=== PATIENT | male | born 1940 | race Caucasian/White ===

== ENCOUNTER 2017-05-25 06:42 | Day surgery (SDC) | payer MEDICARE, OTHER ==
[2017-05-20 14:34] VITALS: BMI 30.4
[~2017-05-25 06:42] MED LIST: ALPRAZolam 0.25 MG TAB PO PRN; ALPRAZolam 0.5 MG TAB PO PRN; ASPIRIN 325 MG TAB PO STA; ATORVASTATIN 80 MG TAB PO STA; NITROGLYCERIN SL TABS 0.4 MG TAB SUBLINGUAL PRN; SODIUM CHLORIDE 0.9% 1,000 ML in EMPTY BAG 1 BAG IV ONE
[2017-05-25 07:08] VITALS: TEMP 97.6
[2017-05-25] MEDS ORDERED: LIDOCAINE 2% INJ 20 MG/ML (20 ML MDV) ONE (07:12)
[2017-05-25] MEDS ORDERED: fentaNYL (PF) 50 MCG/ML 2 ML AMP ONE (07:34)
[2017-05-25] MEDS ORDERED: fentaNYL (PF) 50 MCG/ML 2 ML AMP IVP ONE (07:36)
[2017-05-25] MEDS ORDERED: LIDOCAINE 2% INJ 20 MG/ML SQ ONE (07:37)
[2017-05-25] MEDS ORDERED: IOHEXOL 350 MG/ML 100 ML BOTTLE INJ ONE (07:49)
--- NOTE | 2017-05-25 08:09 | P.PCN ---
Date of Procedure: 05/25/17 Preoperative Diagnosis: Chest pain and positive stress test Postoperative Diagnosis: No significant coronary artery disease Procedure(s) Performed: Left heart catheterization with left ventriculography Implants: Indications for Procedure: Operative Findings: Description of Procedure: HISTORY: This is a 76-year-old gentleman with history of ischemic heart disease with previous stent placement of the circumflex in the setting of acute myocardial infarction. Patient had a borderline lesion in the RCA. Recent stress test showed ischemia in the inferolateral segments. Patient is advised to have cardiac catheterization for definitive diagnosis and further intervention as needed. CONSENT:I have discussed the risks, benefits and alternative therapies for the above-mentioned procedure and for both sedation/analgesia as well as necessary blood product administration, if indicated, as they pertain to this patient. The patient has indicated understanding and acceptance of the risks and procedures discussed. CONSCIOUS SEDATION: Patient was given 50 g of fentanyl. The duration of sedation was 26 minutes. PROCEDURE: Patient was brought to the lab in a fasting state. Patient was given some IV sedation. The right groin is infiltrated with lidocaine and right femoral artery was entered using Seldinger technique. A 6-Vietnamese catheter was left in place and selective coronary arteriography and left ventriculography was performed. Patient tolerated the procedure well. Femoral angiogram was performed and Angio-Seal was applied for hemostasis. No immediate complications were noted and patient was transferred to [facility] in a stable condition HEMODYNAMICS: The aortic pressure is 130/70. Left ankle end-diastolic pressure is 12. There was no gradient across the aortic valve SELECTIVE CORONARY ARTERIOGRAPHY: LEFT MAIN: This is of normal length and patent THE LEFT ANTERIOR DESCENDING CORONARY ARTERY: This is a good caliber vessel giving rise to small diagonal and septal branches. This is free of any significant focal occlusive disease. THE LEFT CIRCUMFLEX AND IS CORONARY ARTERY: This is a good caliber vessel with patent stent in the midportion. It gives rise to 2 PLV branches. It is devoid of any major OM branches and its possible that one of the OM branch might have been totally occluded. THE RIGHT CORONARY ARTERY: This is a good caliber vessel giving rise to good-sized PDA and PLV branches. The vessel shows calcification throat its length without any focal disease. The borderline lesion seen at the origin of the PDA Previously, and doesn't appear to be significant. LEFT VENTRICULOGRAPHY:. This revealed normal-sized cardiac silhouette with good systolic function without any segmental wall motion defects. FINAL IMPRESSION: Stable coronary artery disease with patent stent in the mid circumflex. Enteric coronary system shows calcification. There doesn't seem to be any critical focal lesion. It is possible one of the OM branches might have been totally occluded. PLAN: continuation maximum medical therapy and risk factor modification. PROGNOSIS: good
[2017-05-25] MEDS ORDERED: SODIUM CHLORIDE 0.9% 1,000 ML IV SCH (08:15)
[2017-05-25] MEDS ORDERED: RX INFO: IV CONTRAST WAS GIVEN 1 EACH MISC MISCELLANE PRN (08:15)
[2017-05-25] MEDS ORDERED: HYDROcodone/APAP 10-325MG 1 EACH TAB ONE (08:29)
[2017-05-25 09:55] VITALS: BP 117/76; PULSE 68; RESP 16
== END 2017-05-25 12:50 | disposition home or self-care (01) ==
LOC: CATHCVL 06:42
PROVIDERS: ATTEND Internal Medicine Cardiovascular Disease
DX: I25.118 Atherosclerotic heart disease of native coronary artery with other forms of angina pectoris (principal); Z95.5 Presence of coronary angioplasty implant and graft; R94.39 Abnormal result of other cardiovascular function study; I25.2 Old myocardial infarction; I10 Essential (primary) hypertension; E78.5 Hyperlipidemia, unspecified; E78.00 Pure hypercholesterolemia, unspecified; I25.5 Ischemic cardiomyopathy; Z79.02 Long term (current) use of antithrombotics/antiplatelets; Z79.82 Long term (current) use of aspirin; Z79.899 Other long term (current) drug therapy; F17.210 Nicotine dependence, cigarettes, uncomplicated
CPT/HCPCS: 99152; 93458; C1760; C1894; C1769; J2001; Q9967; J3010

== ENCOUNTER → 2017-11-06 | Outpatient (CLI) | payer MEDICARE ==
[2017-11-06 11:12] LABS: Blood Urea Nitrogen 17 mg/dL (9-20); Non-African American GFR(MDRD) >60 (>60 ml/min/1.73 sqM)
--- NOTE | 2017-11-06 22:54 | CT ---
EXAMINATION TYPE: CT abdomen w con DATE OF EXAM: 11/06/2017 COMPARISON: NONE HISTORY: Cyst on kidneys CT DLP: 823.6 mGycm CONTRAST: CT scan of the abdomen and pelvis is performed without Oral Contrast and with IV Contrast, patient in jected with 100 mL of Omnipaque 300. FINDINGS: LUNG BASES-: No visible nodule. No infiltrate. LIVER/GB: The gallbladder is distended with maximal dimension of about 10.5 cm. Simple hepatic cyst left hepatic lobe lateral segment measuring 2.2 cm. Biliary tree is of normal caliber. PANCREAS: No inflammation. No distinct mass. SPLEEN: No splenic enlargement. No lesion seen. ADRENALS: No nodule. No thickening. KIDNEYS/BLADDER: No hydronephrosis. No nephrolithiasis. Bilateral renal cysts noted. Right renal c yst measures of 5.7 cm and left renal cyst measures 4.3 cm. Urinary bladder grossly unremarkable. BOWEL: Visualized bowel loops appear to be of normal caliber. No inflammatory process seen. LYMPH NODES: No greater than 1cm abdominal or pelvic lymph nodes are appreciated. AORTA: No significant abnormality. OSSEOUS STRUCTURES: Degenerative changes lumbar spine. OTHER: No significant additional abnormality is seen. IMPRESSION: 1. Bilateral simple renal cysts without solid mass identified. 2. Gallbladder hydrops. 3. Simple cyst of the liver.
--- NOTE | 2017-11-06 22:54 | CTL ---
EXAMINATION TYPE: CT Low Dose Lung DATE OF EXAM ORDERED: 11/06/2017 HISTORY: . Lung cancer screening CT DLP: 109.[address] CTD: 3.10 mGy Automated exposure control for dose reduction was used. SCREENING VISIT: COMPARISON: None TECHNIQUE: Low dose computed tomography scan was performed through the chest at 1 mm thick sections a nd reconstructed images in the coronal plane at [address] DIAGNOSTIC QUALITY: Satisfactory FINDINGS: Calcified granuloma in the left upper lobe measuring 4 mm. There is a 3 mm nodule right upper lobe an terior segment image 46 which is noncalcified. 2 mm noncalcified nodule anterior segment left upper l obe image 107. Changes of COPD noted and there is biapical pleural thickening. Subsegmental changes involving both l heidi bases. Most likely basis of atelectasis. There is central and basilar bronchiectasis. No pleural thickening or calcifications noted. Atherosclerotic change of the aorta. No evidence of an eurysm. Assessment for adenopathy limited d by noncontrast technique but no obvious pathologic adenopathy. Dense coronary artery calcification and cardiomegaly noted. There is atherosclerotic change of the ao rta. There is a 7 mm left adrenal nodule which is nonspecific. There is an age-indeterminate compression f racture of a mid thoracic segment is slightly sclerotic changes to the vertebral body. IMPRESSION: Lung rad category 2 (benign findings) 1. Calcified nodule left upper lobe compatible with granuloma and benign finding. Recommend 12 month follow-up exam. 2. Age-indeterminate compression fracture mid thoracic spine with slightly irregular margins. Recomme nd follow-up thoracic spine MRI. 3. Left lower lobe atelectasis or infiltrate. FOLLOW UP CT CHEST RECOMMENDATION: [address] LUNG RAD: Category 2
== END | disposition home or self-care (01) ==
LOC: RADCTMAIN 09:37
PROVIDERS: ATTEND Internal Medicine
DX: Z12.2 Encounter for screening for malignant neoplasm of respiratory organs (principal); R91.8 Other nonspecific abnormal finding of lung field; R91.1 Solitary pulmonary nodule; N28.1 Cyst of kidney, acquired; K82.1 Hydrops of gallbladder; K76.89 Other specified diseases of liver; Z87.891 Personal history of nicotine dependence
CPT/HCPCS: 82565; 84520; 74160; 36415; G0297; Q9967

== ENCOUNTER 2019-08-01 16:45 | Emergency (ER) | payer MEDICARE ==
[2019-08-01] MEDS ORDERED: SODIUM CHLORIDE 0.9% 1,000 ML IV STA ×2 (17:32)
[2019-08-01] MEDS ORDERED: SODIUM CHLORIDE 0.9% 500 ML 500 ML IV STA (17:32)
[2019-08-01] MEDS ORDERED: MORPHINE SULFATE 4 MG/ML SYRINGE IV STA (17:32)
[2019-08-01] MEDS ORDERED: KETOROLAC 30 MG/ML 1 ML VIAL IVP STA (17:33)
--- NOTE | 2019-08-01 18:05 | ED ---
Dizziness HPI - General Chief Complaint: Dizziness Stated Complaint: dizziness, back pain, low BP Time Seen by Provider: 08/01/19 17:07 Source: patient, RN notes reviewed, old records reviewed Mode of arrival: ambulatory Limitations: no limitations - History of Present Illness Initial Comments: This is a 78-year-old male the ER for evaluation presented for evaluation of back pain is worsened normal. Patient denies specific chest pain with the pain is shoulder blades and into his back. He denies any history of heart disease, patient does have high blood pressure high cholesterol. Patient states he does have some chronic pain secondary to he was at work, chronic back pain chronic neck pain he does take [place] at home for pain no current help with that at home. Patient denies any fevers today. No nausea vomiting. He does admit to decreased appetite as of lately maybe some dehydration, family noted blood pressure was low today as well MD Complaint: dizziness, lightheadedness -: hour(s) Timing: gradual onset Description: lightheadedness History of Same: No History of Trauma: No Severity: moderate Improves With: remaining still, rest Worsens With: movement, exertion Associated Symptoms: loss of appetite, weakness - Related Data Home Medications Medication Instructions Recorded Confirmed ALPRAZolam [Xanax] 0.5 mg PO BID PRN 02/07/16 08/01/19 HYDROcodone/APAP 10-325MG [[place] 1 tab PO Q46H PRN 02/07/16 08/01/19 10-325] Sertraline [Zoloft] 100 mg PO DAILY 02/07/16 08/01/19 Tamsulosin HCl [Flomax] 0.4 mg PO DAILY 05/20/17 08/01/19 Finasteride [Proscar] 5 mg PO DAILY 08/01/19 08/01/19 Losartan Potassium [Cozaar] 25 mg PO DAILY 08/01/19 08/01/19 traZODone HCL [Desyrel] 100 mg PO HS 08/01/19 08/01/19 Previous Rx's Medication Instructions Recorded Aspirin 325 mg PO DAILY tab 02/10/16 Atorvastatin [Lipitor] 80 mg PO HS #30 tab 02/10/16 Carvedilol [Coreg] 3.125 mg PO BID-W/MEALS #60 tab 02/10/16 Clopidogrel [Plavix] 75 mg PO DAILY #30 tab 02/10/16 Allergies Allergy/AdvReac Type Severity Reaction Status Date / Time No Known Allergies Allergy Verified 08/01/19 17:50 Review of Systems ROS Statement: Those systems with pertinent positive or pertinent negative responses have been documented in the HPI. ROS Other: All systems not noted in ROS Statement are negative. Past Medical History Past Medical History: Coronary Artery Disease (CAD), GERD/Reflux, Hyperlipidemia, Hypertension, Osteoarthritis (OA) Additional Past Medical History / Comment(s): Hiatal hernia, cataracts(removed,has lens implants), freddy glaucoma History of Any Multi-Drug Resistant Organisms: None Reported Past Surgical History: Adenoidectomy, Appendectomy, Heart Catheterization With Stent, Hernia Repair, Tonsillectomy Additional Past Surgical History / Comment(s): cataracts,umbilical hernia repair, Colonoscopy Past Anesthesia/Blood Transfusion Reactions: No Reported Reaction Date of Last Stent Placement:: 02/03/2016 Past Psychological History: No Psychological Hx Reported Smoking Status: Current every day smoker - Past Family History Father Family Medical History: Cancer, Diabetes Mellitus, Eye Disorder, Prostate Disorder Additional Family Medical History / Comment(s): glaucoma, enlarged prostate and later in life prostate cancer. lived to be 99. Mother Family Medical History: Dementia, Osteoarthritis (OA) Sister(s) Family Medical History: Cancer Son(s) Family Medical History: No Reported History General Exam - General Exam Comments Initial Comments: He does have some tenderness to the lateral muscles of the back Limitations: no limitations General appearance: alert, in no apparent distress Head exam: Present: atraumatic, normocephalic, normal inspection Eye exam: Present: normal appearance, EOMI. Absent: scleral icterus, conjunctival injection, periorbital swelling ENT exam: Present: normal exam, mucous membranes dry Neck exam: Present: normal inspection. Absent: tenderness, meningismus, lymphadenopathy Respiratory exam: Present: normal lung sounds bilaterally. Absent: respiratory distress, wheezes, rales, rhonchi, stridor Cardiovascular Exam: Present: regular rate, normal rhythm, normal heart sounds. Absent: systolic murmur, diastolic murmur, rubs, gallop, clicks GI/Abdominal exam: Present: soft, normal bowel sounds. Absent: distended, tenderness, guarding, rebound, rigid Extremities exam: Present: normal inspection, full ROM, normal capillary refill. Absent: tenderness, pedal edema, joint swelling, calf tenderness Back exam: Present: normal inspection Neurological exam: Present: alert, oriented X3, CN II-XII intact Psychiatric exam: Present: normal affect, normal mood Skin exam: Present: warm, dry, intact, normal color. Absent: rash Course Vital Signs 08/01/19 16:52 Temperature 98.0 F Pulse Rate 66 Respiratory 18 Rate Blood Pressure 107/68 O2 Sat by Pulse 98 Oximetry - Reevaluation(s) Reevaluation #1: 08/01/19 18:03 Medical records reviewed Reevaluation #2: 08/01/19 20:04 patient is in no acute distress EKG Findings - EKG Comments: EKG Findings:: EKG shows sinus rhythm rate of 64, OK 182, QRS 80, QTC 422 Medical Decision Making - Medical Decision Making 28 male the ER for evaluation of dizziness and back pain. Symptoms significantly resolved currently improving with hydration. Pain control and patient can be discharged home - Lab Data Result diagrams: 08/01/19 18:40 08/01/19 18:40 Lab Results 08/01/19 08/01/19 08/01/19 Range/Units 18:40 18:40 18:40 WBC 9.0 (3.8-10.6) k/uL RBC 4.48 (4.30-5.90) m/uL Hgb 14.4 (13.0-17.5) gm/dL Hct 41.7 (39.0-53.0) % MCV 93.2 (80.0-100.0) fL MCH 32.1 (25.0-35.0) pg MCHC 34.4 (31.0-37.0) g/dL RDW 13.3 (11.5-15.5) % Plt Count 171 (150-450) k/uL Neutrophils % 64 % Lymphocytes % 25 % Monocytes % 7 % Eosinophils % 2 % Basophils % 1 % Neutrophils # 5.7 (1.3-7.7) k/uL Lymphocytes # 2.2 (1.0-4.8) k/uL Monocytes # 0.6 (0-1.0) k/uL Eosinophils # 0.2 (0-0.7) k/uL Basophils # 0.1 (0-0.2) k/uL PT (9.0-12.0) sec INR (<1.2) APTT (22.0-30.0) sec Sodium 140 (137-145) mmol/L Potassium 4.2 (3.5-5.1) mmol/L Chloride 107 (98-107) mmol/L Carbon Dioxide 25 (22-30) mmol/L Anion Gap 8 mmol/L BUN 26 H (9-20) mg/dL Creatinine 1.08 (0.66-1.25) mg/dL Est GFR (CKD-EPI)AfAm 77 (>60 ml/min/1.73 sqM) Est GFR (CKD-EPI)NonAf 66 (>60 ml/min/1.73 sqM) Glucose 97 (74-99) mg/dL Calcium 9.1 (8.4-10.2) mg/dL Magnesium 2.1 (1.6-2.3) mg/dL Total Bilirubin 1.1 (0.2-1.3) mg/dL AST 22 (17-59) U/L ALT 15 L (21-72) U/L Alkaline Phosphatase 79 (38-126) U/L Troponin I (0.000-0.034) ng/mL NT-Pro-B Natriuret Pep 108 pg/mL Total Protein 6.1 L (6.3-8.2) g/dL Albumin 3.6 (3.5-5.0) g/dL Lipase 87 (23-300) U/L 08/01/19 08/01/19 Range/Units 18:40 18:40 WBC (3.8-10.6) k/uL RBC (4.30-5.90) m/uL Hgb (13.0-17.5) gm/dL Hct (39.0-53.0) % MCV (80.0-100.0) fL MCH (25.0-35.0) pg MCHC (31.0-37.0) g/dL RDW (11.5-15.5) % Plt Count (150-450) k/uL Neutrophils % % Lymphocytes % % Monocytes % % Eosinophils % % Basophils % % Neutrophils # (1.3-7.7) k/uL Lymphocytes # (1.0-4.8) k/uL Monocytes # (0-1.0) k/uL Eosinophils # (0-0.7) k/uL Basophils # (0-0.2) k/uL PT 11.3 (9.0-12.0) sec INR 1.1 (<1.2) APTT 23.0 (22.0-30.0) sec Sodium (137-145) mmol/L Potassium (3.5-5.1) mmol/L Chloride (98-107) mmol/L Carbon Dioxide (22-30) mmol/L Anion Gap mmol/L BUN (9-20) mg/dL Creatinine (0.66-1.25) mg/dL Est GFR (CKD-EPI)AfAm (>60 ml/min/1.73 sqM) Est GFR (CKD-EPI)NonAf (>60 ml/min/1.73 sqM) Glucose (74-99) mg/dL Calcium (8.4-10.2) mg/dL Magnesium (1.6-2.3) mg/dL Total Bilirubin (0.2-1.3) mg/dL AST (17-59) U/L ALT (21-72) U/L Alkaline Phosphatase (38-126) U/L Troponin I <0.012 (0.000-0.034) ng/mL NT-Pro-B Natriuret Pep pg/mL Total Protein (6.3-8.2) g/dL Albumin (3.5-5.0) g/dL Lipase (23-300) U/L - Radiology Data Radiology results: report reviewed (CT chest negative for acute disease), image reviewed Disposition Clinical Impression: Dehydration, Dizziness, Back pain Disposition: HOME SELF-CARE Condition: Good Instructions (If sedation given, give patient instructions): Dizziness (ED) Is patient prescribed a controlled substance at d/c from ED?: No Referrals: Brisa Mccoy MD [Primary Care Provider] - 1-2 days
[2019-08-01 18:47] LABS: Basophils # (A) 0.1 k/uL (0-0.2); Basophils % (A) 1 %; Eosinophils # (A) 0.2 k/uL (0-0.7); Eosinophils % (A) 2 %; HCT 41.7 % (39.0-53.0); HGB 14.4 gm/dL (13.0-17.5); Lymphocytes # (A) 2.2 k/uL (1.0-4.8); Lymphocytes % (A) 25 %; MCH 32.1 pg (25.0-35.0); MCHC 34.4 g/dL (31.0-37.0); MCV 93.2 fL (80.0-100.0); Mean Platelet Volume 7.6; Monocytes # (A) 0.6 k/uL (0-1.0); Monocytes % (A) 7 %; Neutrophils # (A) 5.7 k/uL (1.3-7.7); Neutrophils % (A) 64 %; Platelet Count 171 k/uL (150-450); RBC 4.48 m/uL (4.30-5.90); RDW 13.3 % (11.5-15.5)
[2019-08-01 18:55] LABS: INR 1.1 (<1.2); Prothrombin Time 11.3 sec (9.0-12.0)
[2019-08-01 18:56] LABS: Albumin 3.6 g/dL (3.5-5.0); Calcium 9.1 mg/dL (8.4-10.2); Magnesium 2.1 mg/dL (1.6-2.3); Potassium 4.2 mmol/L (3.5-5.1); Total Bilirubin 1.1 mg/dL (0.2-1.3); Total Protein 6.1 g/dL (6.3-8.2)
--- NOTE | 2019-08-01 19:30 | CT ---
EXAMINATION TYPE: CT angio chest DATE OF EXAM: 08/01/2019 7:17 PM COMPARISON: None HISTORY: Back pain. Dizzy, lightheaded, low blood pressure. None CT DLP: 436.2 mGycm Automated exposure control for dose reduction was used. CONTRAST: CTA scan of the thorax is performed with IV Contrast, patient injected with 100 mL of Isovue 370, pul monary embolism protocol. . There are 3-D post processed images. FINDINGS: There are a few emphysematous blebs at the lung apices. The lungs are clear of consolidation. There is some mild atelectasis at the lung bases. There is no pleural effusion. There is no pericardial eff usion. There are no hilar masses. There is some dense coronary artery calcification. Thoracic aorta s hows no aneurysm or dissection. There is normal contrast opacification of the pulmonary arteries. I see no filling defects. There is degenerative spurring in the thoracic spine. THERE ARE CORTICAL CYST UPPER POLE OF BOTH KIDNEYS. IMPRESSION: No evidence of pulmonary embolism. Bilateral basilar pulmonary mild linear infiltrate and atelectasis .
[2019-08-01 20:22] VITALS: BP 133/68; PULSE 62; RESP 16; TEMP 98.9
== END 2019-08-01 20:15 | disposition home or self-care (01) ==
LOC: EC 16:45
DX: E86.0 Dehydration (principal); R42 Dizziness and giddiness; M54.9 Dorsalgia, unspecified; I25.10 Atherosclerotic heart disease of native coronary artery without angina pectoris; E78.5 Hyperlipidemia, unspecified; I10 Essential (primary) hypertension; F17.200 Nicotine dependence, unspecified, uncomplicated; Z79.899 Other long term (current) drug therapy; Z95.5 Presence of coronary angioplasty implant and graft
CPT/HCPCS: 99285; 96374; 96375; 96361 ×2; 36415; 93005; 83880; 80053; 83690; 83735; 84484; 85025; 85610; 85730; 71275; J2270; J1885; Q9967

== ENCOUNTER → 2020-07-17 | Outpatient (CLI) | payer MEDICARE ==
--- NOTE | 2020-07-17 09:02 | CT ---
EXAMINATION TYPE: CT brain wo con DATE OF EXAM: 07/17/2020 COMPARISON: None HISTORY: 79-year-old male R41.3, memory loss TECHNIQUE: Examination was done in axial plane without intravenous contrast. Coronal and sagittal r econstructions performed. CT DLP: 1108.4 mGycm Automated exposure control for dose reduction was used. FINDINGS: There is no evidence of acute intracranial hemorrhage, acute ischemic changes, mass, mass-effect, or extra-axial fluid collection. There is no effacement of cerebral sulci or basal subarachnoid cister ns. There is no hydrocephalus. There is no midline shift. Dominguez-white matter distinction is preserv ed. Mild age-related cortical volume loss. Some atherosclerotic calcifications in the carotid siphons. Trace mucosal thickening right maxillary sinus and moderate scattered within the ethmoid air cells. Some focal scalp thickening anterior left frontal region probably scarring related to prior injury. M astoid air cells well pneumatized. Orbits and globes appear intact. IMPRESSION: 1. Mild age-related cortical atrophy. No acute intracranial abnormality seen. 2. Moderate chronic ethmoid sinus disease.
== END | disposition home or self-care (01) ==
LOC: RADCTMAIN 07:09
PROVIDERS: ATTEND Internal Medicine
DX: J32.2 Chronic ethmoidal sinusitis (principal); G31.1 Senile degeneration of brain, not elsewhere classified
CPT/HCPCS: 70450

== ENCOUNTER → 2022-02-12 | Outpatient (CLI) | payer MEDICARE ==
--- NOTE | 2022-02-12 12:20 | MR ---
EXAMINATION TYPE: MR brain wo/w con DATE OF EXAM: 02/12/2022 COMPARISON: Outside CT head 01/15/2022. 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 FINDINGS: Diffusion weighted images demonstrate no evidence of a recent infarct or other diffusion ab normality. There is mild ventricular and sulcal prominence. Scattered small foci of T2 hyperintensit y seen throughout the white matter bilaterally. Approximately 40-50 small scattered lesions are prese nt. Lesions are nonspecific in appearance and distribution. Midline structures demonstrate normal morphology. The craniocervical junction appears within normal limits. Post contrast images demonstrate no abnormal enhancement. The dural venous sinuses appear pa tent. Moderate mucosal thickening of ethmoid sinuses bilaterally is redemonstrated. Nasal septum hugh ins slightly deviated to left of midline. The globes are intact bilaterally. IMPRESSION: 1. No MRI evidence for a recent infarct. 2. Mild diffuse cerebral atrophy and fairly moderate chronic small vessel changes present on MRI. Lat ter somewhat more prominent than suspected on recent CT. 3. Chronic bilateral ethmoid sinus disease redemonstrated.
== END | disposition home or self-care (01) ==
LOC: RADMRIMAIN 09:58
PROVIDERS: ATTEND Internal Medicine
DX: G31.89 Other specified degenerative diseases of nervous system (principal); J32.2 Chronic ethmoidal sinusitis
CPT/HCPCS: 70553; A9585

== ENCOUNTER → 2023-08-07 | Outpatient (CLI) | payer MEDICARE ==
[2023-08-07 07:02] LABS: African American GFR (CKD) 77 (>60 ml/min/1.73 sqM); Blood Urea Nitrogen 20 mg/dL (9-20); Non-African American GFR(CKD) 66 (>60 ml/min/1.73 sqM)
--- NOTE | 2023-08-07 08:31 | CT ---
EXAMINATION TYPE: CT chest w con DATE OF EXAM: 08/07/2023 COMPARISON: 08/01/2019 HISTORY: hemoptysis CT DLP: 346.3 mGycm Automated exposure control for dose reduction was used. TECHNIQUE: CT scan of the chest is performed with IV Contrast, patient injected with 100 mL of Isovue 300. MIP Images are created on CT scanner and reviewed. 3D reconstructed images are created on an independent workstation and reviewed. FINDINGS: LUNGS: Changes of COPD. 2 mm micronodule right upper lobe image 33. Subsegmental atelectasis favored over pn eumonia. No sizable pleural effusion or pneumothorax. Apical pleural thickening. There is a punctate 1 mm nodule in the left lower lobe. There is soft tissue density along the lateral margin of the righ t trachea axial image 9 series 3 MEDIASTINUM: Heart is enlarged and there is coronary artery calcification. Atherosclerotic change aor ta. OTHER: Bilateral simple renal cysts. There is a hypodense lesion in the left lobe of liver measuring 3 Hounsfield units compatible hepatic cyst.. Calcifications pancreas may be related to sequela of ch ronic pancreatitis. There is a curvature of the spine with multilevel hypertrophic and degenerative c hange. . IMPRESSION: 1. COPD with cardiomegaly and no acute intrathoracic process. There is a band of soft tissue thickeni ng along the right lateral margin of the trachea. Consider direct visualization. 2. Pulmonary micronodules appearance. Recommend 12 month annual screening
== END | disposition home or self-care (01) ==
LOC: RADCTMAIN 06:29
PROVIDERS: ATTEND Internal Medicine
DX: J44.9 Chronic obstructive pulmonary disease, unspecified (principal); I51.7 Cardiomegaly; R91.8 Other nonspecific abnormal finding of lung field; R04.2 Hemoptysis
CPT/HCPCS: 82565; 84520; 71260; 36415; Q9967

== ENCOUNTER → 2024-01-20 | Outpatient (CLI) | payer MEDICARE ==
--- NOTE | 2024-01-20 12:00 | FL ---
EXAMINATION TYPE: FL barium swallow w video DATE OF EXAM: 01/20/2024 CLINICAL HISTORY: 83-year-old male R13.19, other Dysphagia. TECHNIQUE: Deglutition study is performed utilizing thin liquid barium, barium thick pudding, and ba rium coated cracker. Total fluoroscopy time 1 minute 56 seconds. Total images: None. Real-time fluoroscopy support was provided to speech pathology. Total DAP: 20 mGycm2. COMPARISON: None. FINDINGS: The oral and pharyngeal phases show satisfactory initiation and propagation with all modalities teste d. Normal mastication is seen with solid modalities tested. There is transient penetration with thi n liquids. No other penetration or aspiration with any modality tested. There is a large anterior br idging endplate spur at C4-C5 impressing upon to the cervical esophagus and causing luminal narrowing . IMPRESSION: 1. Transient penetration with thin liquids. No other penetration or aspiration. 2. Mild to moderate luminal narrowing secondary to a large anterior endplate spur at C4-C5. Please refer to speech therapist notes for further details if necessary.
== END | disposition home or self-care (01) ==
LOC: RADFLMAIN 10:33
PROVIDERS: ATTEND Internal Medicine
DX: K31.5 Obstruction of duodenum (principal)
CPT/HCPCS: 74230

== ENCOUNTER → 2024-05-21 | Outpatient (CLI) | payer MEDICARE ==
--- NOTE | 2024-05-21 18:44 | MR ---
EXAMINATION TYPE: MR lumbar spine wo con DATE OF EXAM: 05/21/2024 12:03 PM CLINICAL INDICATION:Male, 83 years old with history of M48.061 SPINAL STENOSIS, LUMBAR REGION WITHOUT DIONICIO; , Low back pain x10 years COMPARISON: None TECHNIQUE: Multi planar, multi sequence imaging was performed utilizing: T1-weighted, T2-weighted, a nd turbo inversion recovery imaging of the lumbar spine. IV Contrast: cc . (None if empty) FINDINGS: Alignment: The lumbar vertebral bodies have preserved heights and alignment. Cord: The conus medullaris and the distal spinal cord appear unremarkable with regards to their signa l intensity and morphology. Bones/Discs: Multilevel disc degeneration changes with osteophyte formation, disc space narrowing, Sc hmorl's nodes, and facet joint arthropathy. Multilevel disc desiccation is present. No abnormal inve rsion recovery signal to suggest bony edema. T12-L1: No evidence of significant spinal canal stenosis or neural foraminal stenosis. L1-L2: No evidence of significant spinal canal stenosis or neural foraminal stenosis. L2-L3: Disc bulge and facet joint arthropathy result in mild spinal canal and moderate to severe bila teral neural foraminal stenosis. L3-L4: Disc bulge and facet joint arthropathy result in mild spinal canal and severe bilateral neural foraminal stenosis. L4-L5: Disc uncovering from grade 1 anterolisthesis and facet joint arthropathy with moderate spinal canal stenosis and severe bilateral neural foraminal stenosis. L5-S1: The disc has a rounded posterior morphology without significant spinal canal stenosis. Facet j oint arthropathy with moderate to severe bilateral neural foraminal stenosis. No significant spinal canal or neural foraminal stenosis in the remainder of the visualized levels. Other findings: Bilateral simple appearing renal cysts. IMPRESSION: 1. Grade 1 anterolisthesis of L4 and L5 with severe bilateral neural foraminal stenosis and moderate spinal canal stenosis. 2. L3-L4 severe bilateral neural foraminal stenosis. 3. L5-S1 moderate to severe bilateral neural foraminal stenosis.
== END | disposition home or self-care (01) ==
LOC: RADMRIMAIN 10:28
PROVIDERS: ATTEND Psychiatry & Neurology Neurology
DX: M48.061 Spinal stenosis, lumbar region without neurogenic claudication (principal); M43.16 Spondylolisthesis, lumbar region
CPT/HCPCS: 72148